=== PATIENT | male | born 1990 | race African-American/Black ===

== ENCOUNTER 2024-09-20 03:14 | Emergency (ER) | payer SELFPAY ==
[~2024-09-20] VITALS: Ht 180.3 cm; Wt 78.0 kg
[2024-09-20 03:17] VITALS: TEMP 99; O2SAT 96
[2024-09-20 03:30] LABS: BASOPHILS % 0.6 % (0.0-2.0); HEMATOCRIT. 43.6 % (42.0-52.0); LYMPHOCYTES % 57.4 % (20.0-50.0); MEAN CORPUSCULAR HEMOGLOBIN 34.3 pg (28.0-32.0); MEAN CORPUSCULAR HGB CONC 34.4 g/dL (31.0-37.0); MEAN CORPUSCULAR VOLUME 99.8 fL (80.0-94.0); MEAN PLATELET VOLUME 10.8 fl (7.4-10.4); PLATELET 169 x1000/uL (130-400); RED BLOOD CELL COUNT 4.37 mill/uL (4.7-6.1); RED CELL DISTRIBUTION WIDTH 12.5 % (11.6-14.6); WHITE BLOOD COUNT 8.1 x1000/uL (4.5-11.0)
[2024-09-20] MEDS ORDERED: AMPICILLIN SOD/SULBACTAM NA 3 G in SODIUM CHLORIDE 0.9% 100 ML IV SCH (03:30)
[2024-09-20] MEDS ORDERED: TETANUS, DIPHTHERIA, PERTUSSIS VAC/PF 0.5ML (>10YR OLD) IM ONE (03:30)
[2024-09-20 03:33] LABS: CHLORIDE 110 mEq/L (98-107); POTASSIUM 3.7 mEq/L (3.5-5.1); SODIUM 143 mEq/L (136-145)
[2024-09-20] MEDS: SODIUM CHLORIDE 0.9% 1,000 ML IV ONE (03:33)
[2024-09-20 03:34] LABS: CALCIUM 9.5 mg/dL (8.7-10.4); CARBON DIOXIDE 23 mEq/L (21-32)
[2024-09-20] MEDS: ONDANSETRON HCL 4MG/2ML INJ IV STA (03:37)
[2024-09-20 03:39] LABS: CREATININE 1.6 mg/dL (0.6-1.3); GLUCOSE 126 mg/dL (70-105); UREA NITROGEN BLOOD 14 mg/dL (9-23)
[2024-09-20] MEDS: MORPHINE SULFATE 4 MG/ML INJ (FOR IV/IM USE) IV STA (03:39)
[2024-09-20 03:42] VITALS: BP 151/87; PULSE 109; RESP 16; O2SAT 99
[2024-09-20 03:44] LABS: PARTIAL THROMBOPLASTIN TIME 24.2 sec (23.4-31.0); PROTHROMBIN TIME 11.4 sec (9.6-11.0)
[2024-09-20] MEDS ORDERED: MORPHINE SULFATE 4 MG/ML INJ (FOR IV/IM USE) IV NR (03:45)
[2024-09-20] MEDS ORDERED: ONDANSETRON HCL 4MG/2ML INJ IV NR (03:45)
== END 2024-09-20 03:58 | disposition short-term general hospital (02) ==
LOC: ER 03:14
DX: S41.101A Unspecified open wound of right upper arm, initial encounter (principal); M79.601 Pain in right arm; W34.00XA Accidental discharge from unspecified firearms or gun, initial encounter; Y93.89 Activity, other specified; Y92.89 Other specified places as the place of occurrence of the external cause; Y99.8 Other external cause status
CPT/HCPCS: 80048; 83690; 85025; 85610; 85730; 36415; 71045; 72170; 73020; 96361; 96374; 96375; 99285; J0295; J2405; J2270; J7050; J7030; Z7610